=== PATIENT | female | born 1985 | race African-American/Black ===

== ENCOUNTER 2016-07-14 20:49 | Emergency (ER) | payer OTHER ==
[~2016-07-14] VITALS: Ht 162.6 cm; Wt 65.0 kg
[2016-07-15 02:30] VITALS: BP 133/78
== END 2016-07-15 05:40 | disposition home or self-care (01) ==
LOC: ER 07-15 03:24
DX: M25.511 Pain in right shoulder (principal); R07.89 Other chest pain; V49.49XA Driver injured in collision with other motor vehicles in traffic accident, initial encounter; Y93.89 Activity, other specified; Y92.488 Other paved roadways as the place of occurrence of the external cause
CPT/HCPCS: 71010; 73030; 81025; 99284